=== PATIENT | female | born 2000 | race African-American/Black ===

== ENCOUNTER → 2020-04-23 | Outpatient (CLI) | payer MEDICAID ==
--- NOTE | 2020-04-23 12:36 | RADIOLOGY REPORT (SQ) ---
EXAM DESCRIPTION: U/S ML1HWRS TRNABD 1GES W/ODOP IMAGES COMPLETED DATE/TIME: 04/23/2020 10:32 am REASON FOR STUDY: Z34.01 ENCNTR FOR SUPRVSN OF NORMAL FIRST PREG, FIRST TRIMESTER Z34.01 ENCNTR FOR SUPRVSN OF NORMAL FIRST PREG, FIRST TRIMES COMPARISON: None. TECHNIQUE: Transabdominal static and realtime grayscale images acquired of the pelvis. Additional se lected spectral and color Doppler images recorded. All images stored on PACs. bHCG: Not applicable. CLINICAL DATES: 13 weeks 1 day LIMITATIONS: None. FINDINGS: FETUS: Single Living intrauterine . ULTRASOUND EGA: 12 weeks 3 days ULTRASOUND JOSIE: 11/02/2020 EFW: Not applicable less than 20 weeks. CRL: 6 cm. FHR: 158 beats per minute. SURVEY: Too early to assess. AMNIOTIC FLUID: Adequate amount. PLACENTA: Not yet developed due to early gestation. SUBCHORIONIC BLEED: No SIZE OF BLEED: Not applicable. UTERUS: No masses. No anomalies. CERVICAL LENGTH: 2.6 cm. Closed. RIGHT ADNEXA: Normal ovary with normal vascular flow. 1.7 x 1.2 x 1.6 cm. No adnexal free fluid. No adnexal masses. LEFT ADNEXA: Normal ovary with normal vascular flow. 3.3 x 2.4 x 1.7 cm. No adnexal free fluid. No adnexal masses. FREE FLUID: None. OTHER: No other significant finding. IMPRESSION: LIVING INTRAUTERINE . EGA 12 weeks 3 days Trimester of : First trimester - 0 to 13 weeks. TECHNICAL DOCUMENTATION: JOB ID: [id number] 2010 [employer]- All Rights Reserved rev-03/18 Reading location - IP/workstation name: [email or web address]
== END ==
LOC: RAD 09:29
PROVIDERS: ATTEND Midwife
DX: Z34.01 Encounter for supervision of normal first pregnancy, first trimester (principal)
CPT/HCPCS: 76801

== ENCOUNTER 2020-09-16 11:27 | Outpatient (CLI) | payer OTHER, MEDICAID ==
--- NOTE | 2020-09-16 12:11 | Non Stress Test Report ---
Non Stress Test Datetime Report Generated by CPN: 09/16/2020 12:11 DEMOGRAPHIC Test Number: 1 EGA NST: 34.0 INDICATION Indication for Study (NST) Other: repeat NST NR in office VITAL SIGNS Temperature - NST: 98.8 Pulse - NST: 89 RESP - NST: 15 NBPSYS NST: 104 NBPDIA NST: 57 MONITORING Monitor Explained: Monitor Explained; Test Explained; Patient Verbalized Understanding Time on Monitor: 09/16/2020 11:36 Time off Monitor: 09/16/2020 11:59 NST Duration: 23 NST INTERVENTIONS NST Interventions: PO Hydration; Reposition Patient Physician Notified NST: Elayne Morales, SAMIA BABY A: [id number] BABY A Movement : Present Contraction Frequency : Irritabilty FHR Baseline : 130 Accelerations : 15X15 Decelerations : None Variability : Moderate 6-25bpm NST Review: Meets Criteria for Reactive NST NST Review and Verified By : JOSH Flanagan Results: Reactive NST REPORT Report Trigger: Send Report
== END 2020-09-16 12:04 | disposition home or self-care (01) ==
LOC: LC 11:27
PROVIDERS: ATTEND Obstetrics & Gynecology
DX: Z34.03 Encounter for supervision of normal first pregnancy, third trimester (principal); Z3A.34 34 weeks gestation of pregnancy
CPT/HCPCS: 59025

== ENCOUNTER 2020-10-22 19:29 | Inpatient (IN) | payer OTHER, MEDICAID ==
[2020-10-22] MEDS ORDERED: OXYTOCIN/0.9 % SODIUM CHLORIDE 30 UNIT/500 ML RTUINJ IV PRN (19:54)
[2020-10-22] MEDS ORDERED: DINOPROSTONE 10 MG VAGINAL INSERT.SR PV PRN (19:54)
[2020-10-22] MEDS ORDERED: RINGERS SOLUTION,LACTATED 500 ML IV ONE (19:57)
[2020-10-22] MEDS ORDERED: RINGERS SOLUTION,LACTATED 1,000 ML IV PRN (19:57)
[2020-10-22] MEDS ORDERED: DINOPROSTONE 10 MG VAGINAL INSERT.SR ONE (20:26)
[2020-10-22 20:47] LABS: ABSOLUTE EOSINOPHILS # (AUTO) 0.1 10^3/uL (0.0-0.6); ABSOLUTE LYMPHOCYTES (AUTO) 1.4 10^3/uL (0.5-4.7); ABSOLUTE MONOCYTES (AUTO) 0.5 10^3/uL (0.1-1.4); ABSOLUTE NEUT (AUTO) 3.4 10^3/uL (1.7-8.2); BASOPHILS % (AUTO) 0.2 % (0-2); EOSINOPHILS % (AUTO) 1.1 % (0-6); HEMATOCRIT 31.4 % (36.0-47.0); HEMOGLOBIN 10.8 g/dL (12.0-15.5); LYMPHOCYTES % (AUTO) 26.7 % (13-45); MEAN CORPUSCULAR HEMOGLOBIN 32.4 pg (27.0-33.4); MEAN CORPUSCULAR HGB CONC 34.3 g/dL (32.0-36.0); MEAN CORPUSCULAR VOLUME 94 fl (80-97); MONOCYTES % (AUTO) 8.8 % (3-13); PLATELET COUNT 170 10^3/uL (150-450); RED BLOOD COUNT 3.33 10^6/uL (3.72-5.28); SEGMENTED NEUTROPHILS % (AUTO) 63.2 % (42-78); TOTAL CELLS COUNTED % (AUTO) 100 %; WHITE BLOOD COUNT 5.4 10^3/uL (4.0-10.5)
[2020-10-22 21:02] LABS: APPEARANCE,URINE SLIGHTLY-CLOUDY; BILIRUBIN,URINE NEGATIVE (NEGATIVE); COLOR,URINE YELLOW; GLUCOSE, URINE NEGATIVE (NEGATIVE); KETONES,URINE NEGATIVE (NEGATIVE); LEUKOCYTE ESTERASE,URINE NEGATIVE (NEGATIVE); NITRITE,URINE NEGATIVE (NEGATIVE); PROTEIN,URINE NEGATIVE (NEGATIVE); URINE SPECIFIC GRAVITY 1.013
[2020-10-22 21:17] LABS: URINE AMPHETAMINES SCREEN NEGATIVE; URINE BARBITURATES SCREEN NEGATIVE; URINE BENZODIAZEPINES SCREEN NEGATIVE; URINE COCAINE SCREEN NEGATIVE; URINE MARIJUANA (THC) SCREEN NEGATIVE; URINE METHADONE SCREEN NEGATIVE; URINE PHENCYCLIDINE SCREEN NEGATIVE
[2020-10-23] MEDS ORDERED: OXYTOCIN/0.9 % SODIUM CHLORIDE 30 UNIT/500 ML RTUINJ ONE (10:00)
[2020-10-23] MEDS ORDERED: LIDOCAINE 1% INJ-PF (10 MG/ML) 30 ML SDV ONE (10:00)
[2020-10-23] MEDS ORDERED: OXYTOCIN 10 UNIT/ML VIAL ONE (10:00)
[2020-10-23] MEDS ORDERED: MISOPROSTOL 0.2 MG TABLET ONE (10:00)
--- NOTE | 2020-10-23 10:09 | Admission Physical ---
Datetime Report Generated by CPN: 10/23/2020 10:09 CURRENT ADMISSION Chief Complaint: Scheduled Induction of Labor Indication for Induction: IUGR Admit Impression : Term, Intrauterine ; No Active Labor Admit Plan: Initiate Labor Induction Protocol Admit Plan- Other: GBS neg ALLERGIES Medication Allergies: No Medication Allergies: No Known Allergies (10/22/2020) Latex: No Latex Allergies OBSTETRICAL HISTORY EDC: 10/28/2020 00:00 : 1 Para: 0 Term: 0 : 0 SAB: 0 IAB: 0 Ectopic: 0 Livin Cesareans: 0 VBACs: 0 Multiple Births: 0 Gestational Diabetes: No Rh Sensitization: No Incompetent Cervix: No LUBA: No Infertility: No ART Treatment: No Uterine Anomaly: No IUGR: No Hx Previous C/S: No Macrosomia: No Hx Loss/Stillborn: No PIH: No Hx : No Placenta Previa/Abruption: No Depression/PP Depression: No PTL/PROM: No Post Hemorrhage: No Current Procedures: Ultrasound; NST Obstetrical History Comments: G1- Current IUGR SEE RECORDS Alcohol: No Marijuana : No Cocaine: No Other Illicit Drugs: No Cigarettes: Never Smoker. [id number] MEDICAL HISTORY Diabetes: No Blood Transfusion: No Pulmonary Disease (Asthma, TB): No Breast Disease: No Hypertension: No Installations Inspector Surgery: No Heart Disease: No Hosp/Surgery: No Autoimmune Disorder: No Anesthetic Complications: No Kidney Disease: No Abnormal Pap Smear: No Neuro/Epilepsy: No Psychiatric Disorders: No Other Medical Diseases: Yes Hepatitis/Liver Disease: No Significant Family History: No Varicosities/Phlebitis: No Trauma/Violence : No Thyroid Dysfunction: No Medical History Comments: Anemia with INFECTIOUS HISTORY Gonorrhea: No Genital Herpes: No Chlamydia: No Tuberculosis: No Syphilis: No Hepatitis: No HIV/AIDS Exposure: No Rash or Viral Illness: No HPV: No PHYSICAL EXAM General: Normal HEENT: Deferred Neurologic: Normal Thyroid: Deferred Heart: Normal Lungs: Normal Breast: Deferred Back: Deferred Abdomen: Normal Genitourinary Exam: Normal Extremities: Normal DTRs: Deferred Pelvic Type: Adequate Vital Signs: Reviewed MEMBRANES Membranes: Intact FETUS A EGA: 39.2 Monitoring: External US FHR- Baseline: 120 Variability: Moderate 6-25bpm Accelerations: 15X15 Decelerations: None Presentation: Vertex Admit Comment: had cervidil last night, plan to start pitocin today plan per Dr. Martin EFW 2599g on 10/18/20 at [facility] 6th%tile PLANS FOR LABOR AND DELIVERY Labor and Delivery: None Pain Management: Epidural (Annotations: Data stored by N on behalf of user) Feeding Preference: Breast Benefit of Breast Feed Discussed: Yes Circumcision: N/A INFORMED CONSENT Assignment: Vinod Martin MD Signature: with User ID: Mina : with User ID: Mina
--- NOTE | 2020-10-23 16:44 | L&D Progress Notes ---
PROGRESS NOTES Datetime Report Generated by CPN: 10/23/2020 16:44 PROGRESS NOTE Procedures: Sterile Vag Exam Plan: Continue Present Management Comment: plan per Dr. Martin to stop pit this pm and place cervidil VAGINAL EXAM Dilatation: 1 Effacement: 50 LAST VAGINAL EXAM-NURSING Nursing Exam Dilitation: 1.0 Nursing Exam Effacement: 50 Nursing Exam Station: -2 Nursing Exam Contractions: Unable to determine cx pattern d/t pt movement, TOCO readjusted MEMBRANES Membranes: Intact FETUS A FHR - Baseline: 125 Monitoring: External US Variability: Moderate 6-25bpm Decelerations: None : 39.2 Presentation: Vertex SIGNATURE SIGNATURE: [id number] Assignment: Vinod Martin MD Signature: with User ID: Joelles : with User ID: Mina
[2020-10-23] MEDS ORDERED: DINOPROSTONE 10 MG VAGINAL INSERT.SR PV ONE (18:00)
[2020-10-23] MEDS ORDERED: DINOPROSTONE 10 MG VAGINAL INSERT.SR ONE (20:21)
[2020-10-23] MEDS ORDERED: DINOPROSTONE 10 MG VAGINAL INSERT.SR PV PRN (20:23)
[2020-10-24] MEDS ORDERED: OXYTOCIN/0.9 % SODIUM CHLORIDE 30 UNIT/500 ML RTUINJ ONE (09:17)
--- NOTE | 2020-10-24 10:42 | L&D Progress Notes ---
PROGRESS NOTES Datetime Report Generated by CPN: 10/24/2020 10:41 PROGRESS NOTE Impression: Normal Progression of Labor Procedures: Artificial ROM; Sterile Vag Exam Plan: Continue Present Management; Induction; Cervical Ripening Informed Consent Obtained: Vaginal Delivery; Induction of Labor; Risks, Benefits and Alternatives Discussed Comment: 1/50/-3, pitocin started for IOL and continued cervical ripening. VAGINAL EXAM Dilatation: 1 Effacement: 50 LAST VAGINAL EXAM-NURSING Nursing Exam Dilitation: 1.0 Nursing Exam Effacement: thick Nursing Exam Station: -2 Nursing Exam Contractions: unable to determine pattern d/t pt up to BR . RN at bedside readjusting TOCO MEMBRANES Membranes: Intact FETUS A FHR - Baseline: 120 Monitoring: External US Variability: Moderate 6-25bpm Decelerations: None FHR Category: Category I : 39.2 Presentation: Vertex SIGNATURE SIGNATURE: [id number];[id number];[id number] Assignment: Vinod Martin MD Signature: with User ID: Julien : with User ID: Julien
[2020-10-24] MEDS ORDERED: NALBUPHINE HCL INJ 10 MG/1 ML AMPULE ONE (11:12)
[2020-10-24] MEDS ORDERED: NALBUPHINE HCL INJ 10 MG/1 ML AMPULE INJ ONE (11:12)
[2020-10-24] MEDS ORDERED: EPHEDRINE SULFATE INJ 50 MG/1 ML AMPULE ONE (15:49)
[2020-10-24] MEDS ORDERED: FENTANYL/BUPIVACAINE/NS/PF 300 MCG/150 ML RTUINJ EPI ONE (15:49)
[2020-10-24] MEDS ORDERED: ROPIVACAINE HCL 0.2% INJ/PF (2 MG/ML) 20 ML SDV ONE (15:50)
--- NOTE | 2020-10-24 17:42 | L&D Progress Notes ---
PROGRESS NOTES Datetime Report Generated by CPN: 10/24/2020 17:42 PROGRESS NOTE Impression: Normal Progression of Labor Procedures: Artificial ROM; Sterile Vag Exam Plan: Continue Present Management; Induction Informed Consent Obtained: Vaginal Delivery; Induction of Labor; Risks, Benefits and Alternatives Discussed Vital Signs : Reviewed Comment: Cooks catheter evaluation performed and both bulbs in vagina. Cooks catheter removed. Cvx 6-7/70/-1. AROM clear fluid. Anticipate . VAGINAL EXAM Dilatation: 1 Effacement: 50 LAST VAGINAL EXAM-NURSING Nursing Exam Dilitation: 6.0 Nursing Exam Effacement: thick Nursing Exam Station: -2 Nursing Exam Contractions: unable to determine cx pattern. MEMBRANES Membranes: Ruptured Amniotic Fluid Color: Clear FETUS A FHR - Baseline: 120 Monitoring: External US Variability: Moderate 6-25bpm Accelerations: 15X15 Decelerations: Variable FHR Category: Category I : 39.2 Presentation: Vertex SIGNATURE SIGNATURE: [id number];[id number];[id number] Assignment: Vinod Martin MD Signature: with User ID: Julien : with User ID: Julien
[2020-10-25] MEDS ORDERED: ACETAMINOPHEN 650 MG SUPP.RECT PR PRN (00:17)
[2020-10-25] MEDS ORDERED: DIPH/PERTUSS(ACELL)/TETANUS VAC/PF 0.5 ML SYR (>=10YO) IM PRN (00:17)
[2020-10-25] MEDS ORDERED: ZOLPIDEM TARTRATE 5 MG TABLET PO PRN (00:17)
[2020-10-25] MEDS ORDERED: BENZOCAINE/MENTHOL AEROSOL SPRAY 56 ML TOP PRN (00:17)
[2020-10-25] MEDS ORDERED: DIBUCAINE 1% OINTMENT 28 GM TP PRN (00:17)
[2020-10-25] MEDS ORDERED: GLYCERIN/WITCH HAZEL LEAF 1 EACH MED..WIPE TP PRN (00:17)
[2020-10-25] MEDS ORDERED: FAMOTIDINE 20 MG TABLET PO PRN (00:17)
[2020-10-25] MEDS ORDERED: OXYTOCIN/0.9 % SODIUM CHLORIDE 30 UNIT/500 ML RTUINJ IV PRN (00:17)
[2020-10-25] MEDS ORDERED: MEASLES,MUMPS&RUBELLA VACC/PF 0.5 ML VIAL SUBCUT PRN (00:17)
[2020-10-25] MEDS ORDERED: VARICELLA VACC/PF (1350 UNIT/0.5 ML) 0.5 ML VIAL SUBCUT PRN (00:17)
[2020-10-25] MEDS ORDERED: DIPHENHYDRAMINE HCL 25 MG CAPSULE PO PRN (00:17)
[2020-10-25] MEDS ORDERED: ACETAMINOPHEN 325 MG TABLET PO PRN (00:17)
[2020-10-25] MEDS ORDERED: MAGNESIUM HYDROXIDE SUSP 30 ML UDCUP PO PRN (00:17)
[2020-10-25] MEDS ORDERED: MAG HYDROX/AL HYDROX/SIMETH SUSP 30 ML UDCUP PO PRN (00:17)
[2020-10-25] MEDS ORDERED: PSEUDOEPHEDRINE HCL 30 MG TABLET PO PRN (00:17)
[2020-10-25] MEDS ORDERED: ACETAMINOPHEN WITH CODEINE #3 TABLET PO PRN ×2 (00:17)
[2020-10-25] MEDS: IBUPROFEN 800 MG TABLET PO SCH ×3 (06:04→21:47)
--- NOTE | 2020-10-25 09:54 | PDOC PROGRESS REPORT ---
Subjective-OB Progress Note for:: 10/25/20 Subjective: Doing well, no c/o, , ambulating, voiding, scant lochia Physical Exam (OB) Vital Signs: Temp Pulse Resp BP Pulse Ox 98.2 F 83 17 95/65 L 98 10/25/20 07:56 10/25/20 07:56 10/25/20 07:56 10/25/20 07:56 10/25/20 07:56 Intake & Output 10/24/20 10/25/20 10/26/20 06:59 06:59 06:59 Intake Total 400 Output Total 800 Balance -400 - PIH/Pre-Eclampsia Clonus: Negative Headache: Absent Epigastric Pain: No Visual Changes: No - Maternal Morbidity 59. Maternal Morbidity (serious complications experinced by the mother associated with labor and delivery: None of the above - Lochia Lochia Amount: Small 10-25 ml Lochia Color: Rubra/Red - Abdomen Description: Soft, Round Hernia Present: No Fundal Description: Firm, Midline Fundal Height: u/u - u/2 Objective-Diagnostic Laboratory: 10/22/20 20:35 Assessment and Plan(PN) - Assessment and Plan (1) Encounter for induction of labor Is this a current diagnosis for this admission?: Yes (2) Intrauterine growth restriction affecting antepartum care of mother Qualifiers: Fetus number: single or unspecified fetus Qualified Code(s): O36.5990 - Ma ternal care for other known or suspected poor growth, unspecified trimester, not applicable or unspecified Is this a current diagnosis for this admission?: Yes (3) Vaginal delivery Is this a current diagnosis for this admission?: Yes - Time Spent with Patient Time with patient: Less than 15 minutes Medications reviewed and adjusted accordingly: Yes - Disposition Anticipated Discharge Disposition: Home, Self Care Anticipated Discharge Timeframe: within 24 hours
[2020-10-25] MEDS: SENNOSIDES/DOCUSATE 8.6-50 MG 1 EACH TABLET PO SCH (12:04)
[2020-10-25] MEDS: DOCUSATE SODIUM 100 MG CAPSULE PO SCH ×2 (12:04→18:04)
[2020-10-25] MEDS: FERROUS SULFATE 325 MG TABLET PO SCH ×2 (12:04→18:04)
[2020-10-25] MEDS: PRENATAL VITAMIN W DHA CAPSULE PO SCH (12:04)
[2020-10-26] MEDS: IBUPROFEN 800 MG TABLET PO SCH ×2 (05:05→14:44)
[2020-10-26 08:50] LABS: HEMOGLOBIN 11.3 g/dL (12.0-15.5); MEAN CORPUSCULAR HGB CONC 34.3 g/dL (32.0-36.0); MEAN CORPUSCULAR VOLUME 93 fl (80-97); PLATELET COUNT 136 10^3/uL (150-450); RED BLOOD COUNT 3.54 10^6/uL (3.72-5.28); RED CELL DISTRIBUTION WIDTH 14.2 % (11.5-14.0); WHITE BLOOD COUNT 6.8 10^3/uL (4.0-10.5)
[2020-10-26] MEDS: PRENATAL VITAMIN W DHA CAPSULE PO SCH (10:07)
[2020-10-26] MEDS: FERROUS SULFATE 325 MG TABLET PO SCH (10:07)
[2020-10-26] MEDS: DOCUSATE SODIUM 100 MG CAPSULE PO SCH (10:09)
--- NOTE | 2020-10-26 10:56 | PDOC PROGRESS REPORT ---
Subjective-OB Progress Note for:: 10/26/20 Subjective: Doing well, no c/o, would like to go home today, , lochia scant Physical Exam (OB) Vital Signs: Temp Pulse Resp BP Pulse Ox 97.4 F 75 16 95/51 L 98 10/26/20 07:54 10/26/20 07:14 10/26/20 07:14 10/26/20 07:14 10/26/20 07:14 Intake & Output 10/25/20 10/26/20 10/27/20 06:59 06:59 06:59 Intake Total 400 1220 Output Total 800 Balance -400 1220 - PIH/Pre-Eclampsia DTR's: 1 + Clonus: Negative Headache: Absent Epigastric Pain: No Visual Changes: No - Maternal Morbidity 59. Maternal Morbidity (serious complications experinced by the mother associated with labor and delivery: None of the above - Lochia Lochia Amount: Scant < 10 ml Lochia Color: Rubra/Red - Abdomen Description: Soft, Round Hernia Present: No Fundal Description: Firm, Midline Fundal Height: u/u - u/2 Objective-Diagnostic Laboratory: 10/26/20 07:44 10/26/20 07:44 WBC 6.8 RBC 3.54 L Hgb 11.3 L Hct 33.0 L MCV 93 MCH 32.0 MCHC 34.3 RDW 14.2 H Plt Count 136 L Assessment and Plan(PN) - Assessment and Plan (1) Encounter for induction of labor Is this a current diagnosis for this admission?: Yes (2) Intrauterine growth restriction affecting antepartum care of mother Qualifiers: Fetus number: single or unspecified fetus Qualified Code(s): O36.5990 - Maternal care for other known or suspected poor growth, unspecified trim kaye, not applicable or unspecified Is this a current diagnosis for this admission?: Yes (3) Vaginal delivery Is this a current diagnosis for this admission?: Yes - Time Spent with Patient Time with patient: Less than 15 minutes Medications reviewed and adjusted accordingly: Yes - Disposition Anticipated Discharge Disposition: Home, Self Care Anticipated Discharge Timeframe: within 24 hours
--- NOTE | 2020-10-26 13:21 | PDOC DISCHARGE SUMMARY ---
Impression - Admit/DC Date/PCP Admission Date/Primary Care Provider: 10/22/20 20:50 TERESITA TRAORE MD Discharge Date: 10/26/20 - Discharge Diagnosis (1) Encounter for induction of labor Is this a current diagnosis for this admission?: Yes (2) Intrauterine growth restriction affecting antepartum care of mother Is this a current diagnosis for this admission?: Yes (3) Vaginal delivery Is this a current diagnosis for this admission?: Yes - Additional Information Resuscitation Status: Full Code Discharge Diet: As Tolerated Discharge Activity: Activity As Tolerated, Balance Activity w/Rest, No Lifting/Push/Pulling, Pelvic Rest, No tub bath, Walk Frequently Referrals: TERESITA TRAORE MD [Primary Care Provider] - Prescriptions: Ibuprofen [Motrin 800 mg Tablet] 800 mg PO Q8 30 Days #90 tablet Home Medications: Iron 325 mg PO DAILY 09/16/20 Prenat 115/Iron Fum/Folic/Dss [ 19 Tablet] 1 each PO DAILY 09/16/20 Ibuprofen [Motrin 800 mg Tablet] 800 mg PO Q8 30 Days #90 tablet 10/26/20 HPI Reason(s) for Admission: Induction of Labor, Other Procedures: None Intrapartum Procedure(s): Spontaneous Vaginal Delivery Hospital Course 59. Maternal Morbidity (serious complications experinced by the mother associated with labor and delivery: None of the above Results Laboratory Results: WBC 6.8 10^3/uL (4.0-10.5) 10/26/20 07:44 RBC 3.54 10^6/uL (3.72-5.28) L 10/26/20 07:44 Hgb 11.3 g/dL (12.0-15.5) L 10/26/20 07:44 Hct 33.0 % (36.0-47.0) L 10/26/20 07:44 MCV 93 fl (80-97) 10/26/20 07:44 MCH 32.0 pg (27.0-33.4) 10/26/20 07:44 MCHC 34.3 g/dL (32.0-36.0) 10/26/20 07:44 RDW 14.2 % (11.5-14.0) H 10/26/20 07:44 Plt Count 136 10^3/uL (150-450) L 12/26/20 07:44 Lymph % (Auto) 26.7 % (13-45) 10/22/20 20:35 Clark % (Auto) 8.8 % (3-13) 10/22/20 20:35 Eos % (Auto) 1.1 % (0-6) 10/22/20 20:35 Baso % (Auto) 0.2 % (0-2) 10/22/20 20:35 Absolute Neuts (auto) 3.4 10^3/uL (1.7-8.2) 10/22/20 20:35 Absolute Lymphs (auto) 1.4 10^3/uL (0.5-4.7) 10/22/20 20:35 Absolute Monos (auto) 0.5 10^3/uL (0.1-1.4) 10/22/20 20:35 Absolute Eos (auto) 0.1 10^3/uL (0.0-0.6) 10/22/20 20:35 Absolute Basos (auto) 0.0 10^3/uL (0.0-0.2) 10/22/20 20:35 Seg Neutrophils % 63.2 % (42-78) 10/22/20 20:35 Urine Color YELLOW 10/22/20 19:47 Urine Appearance SLIGHTLY-CLOUDY 10/22/20 19:47 Urine pH 7.0 (5.0-9.0) 10/22/20 19:47 Ur Specific [place] 1.013 10/22/20 19:47 Urine Protein NEGATIVE mg/dL (NEGATIVE) 10/22/20 19:47 Urine Glucose (UA) NEGATIVE mg/dL (NEGATIVE) 10/22/20 19:47 Urine Ketones NEGATIVE mg/dL (NEGATIVE) 10/22/20 19:47 Urine Blood NEGATIVE (NEGATIVE) 10/22/20 19:47 Urine Nitrite NEGATIVE (NEGATIVE) 10/22/20 19:47 Urine Bilirubin NEGATIVE (NEGATIVE) 10/22/20 19:47 Urine Urobilinogen 2.0 mg/dL (<2.0) H 10/22/20 19:47 Ur Leukocyte Esterase NEGATIVE (NEGATIVE) 10/22/20 19:47 Urine Ascorbic Acid 40 (NEGATIVE) H 10/22/20 19:47 Urine Opiates Screen NEGATIVE 10/22/20 19:47 Urine Methadone Screen NEGATIVE 10/22/20 19:47 Ur Barbiturates Screen NEGATIVE 10/22/20 19:47 Ur Phencyclidine Scrn NEGATIVE 10/22/20 19:47 Ur Amphetamines Screen NEGATIVE 10/22/20 19:47 U Benzodiazepines Scrn NEGATIVE 10/22/20 19:47 Urine Cocaine Screen NEGATIVE 10/22/20 19:47 U Marijuana (THC) Screen NEGATIVE 10/22/20 19:47 RPR NONREACTIVE (NONREACTIVE) 10/22/20 20:35 Blood Type B POSITIVE 10/22/20 20:35 Antibody Screen NEGATIVE 10/22/20 20:35
[2020-10-26 13:31] VITALS: BP 95/65
[2020-10-26] MEDS: SENNOSIDES/DOCUSATE 8.6-50 MG 1 EACH TABLET PO SCH (14:44)
--- NOTE | 2020-10-29 11:47 | Delivery Summary ---
Del Sum A-C Datetime Report Generated by CPN: 10/29/2020 11:46 DELIVERY PERSONNEL DELIVERY PERSONNEL: [id number] Delivery Doctor:: Nanci Dunn MD Labor and Delivery Nurse:: Milly Andrew RNconverter supervisor Nurse:: Arely Hyman RN Gin Pole Operator/SUSTAINABILITY COACH: Marcos Paez, AUDIO VISUAL DIRECTOR MATERNAL INFORMATION Delivery Anesthesia: Epidural Medications After Delivery: Pitocin 30 Units in 500ml NS/D5W Estimated Blood Loss (ml): 250 Delivery QBL: 250 Maternal Complications: None Provider Comments: VFI delivered in JACK presentation with nuchal and body cord. Shoulders and body delivered without difficulty. COrd doubly clamped and cut after delay. Placenta delivered intact spontaneously. FF at U. No perineal lacerations. Mother and baby stable upon provider leaving the room. LABOR SUMMARY EDC: 10/28/2020 00:00 No. Babies in Womb: 1 Attempted: No Labor Anesthesia: Epidural LABOR INFORMATION Reason for Induction: Intrauterine Growth Retardation Onset of Labor: 10/24/2020 17:14 Complete Dilatation: 10/24/2020 22:38 Cervical Ripening Agents: Cervidil Cervical Ripening Agents: Cervidil Oxytocin: Induction Group B Beta Strep: negative (Annotations: Data stored by [facility] on behalf of user) Steroids Given: None Reason Steroids Not Administered: Not Applicable MEMBRANES Membranes Rupture Method: Artificial Rupture of Membranes: 10/24/2020 17:14 Length of Rupture (hr): 6.80 Amniotic Fluid Color: Clear Amniotic Fluid Amount: Small Amniotic Fluid Odor: Normal STAGES OF LABOR Stage 1 hr: 5 Stage 1 min: 24 Stage 2 hr: 1 Stage 2 min: 24 Stage 3 hr: 0 Stage 3 min: 3 Total Time in Labor hr: 6 Total Time in Labor min: 51 VAGINAL DELIVERY Episiotomy: None Laceration #1: None Laceration Extension #1: N/A Laceration Repair: Not Applicable Sponge Count Correct: Yes Sharps Count Correct: Yes CSECTION DELIVERY Primary Indication: N/A Secondary Indication: N/A CSection Incidence: N/A Labor: N/A Elective: N/A CSection Incision: N/A BABY A INFORMATION Infant Delivery Date/Time: 10/25/2020 00:02 Method of Delivery: Vaginal Nurse Controlled Delivery: No Born in Route : No : N/A Forceps: N/A Vacuum Extraction: N/A Shoulder Dystocia : No PRESENTATION/POSITION BABY A Presentation: Cephalic Presentation: Cephalic Presentation: Cephalic Presentation: Cephalic Presentation: Cephalic Presentation: Cephalic Cephalic Presentation: Vertex Vertex Position: Left Occipital Anterior Breech Presentation: N/A PLACENTA INFORMATION BABY A Placenta Delivery Time : 10/25/2020 00:05 Placenta Method of Delivery: Spontaneous Placenta Status: Delivered SCORES BABY A Heart Rate 1 min: >100 bpm Resp Effort 1 min: Good Cry Reflex Irritability 1 min: Cough or Sneeze or Pulls Away Muscle Tone 1 min: Some Flexion of Extremities Color 1 min: Body [place], Extremities Blue Resuscitation Effort 1 min: Tactile Stimulation SCORE 1 MIN: 8 Heart Rate 5 min: >100 bpm Resp Effort 5 min: Good Cry Reflex Irritability 5 min: Cough or Sneeze or Pulls Away Muscle Tone 5 min: Active Motion Color 5 min: Body [place], Extremities Blue Resuscitation Effort 5 min: Tactile Stimulation SCORE 5 MIN: 9 INFORMATION BABY A Gestational Age at Delivery: 39.4 Gestational Status: Full Term- 39- 40.6 Weeks Infant Outcome : Liveborn Condition : Stable Infant Sex: Female IDENTIFICATION BABY A Verification Date/Time: 10/25/2020 00:55 ID Band Number: [id number] Mother's Name Verified: Yes Infant RN Verifying Infant: ETao Andrew RN/ R. Raydonte RN WEIGHT/LENGTH BABY A Infant Birthweight (gm): 2850 Weight (lb): 6 Weight (oz): 5 Length (in): 19.50 Infant Length (cm): 49.53 CORD INFORMATION BABY A No. Cord Vessels: 3 Nuchal Cord : Around Neck x1, Loose Cord Blood Taken: Yes-For Storage (Mom's Blood type +) ASSESSMENT BABY A Skin to Skin: Yes BABY B INFORMATION : N/A SIGNATURES Signature: with User ID: [email or web address] : I was personally available for consultation and serving as supervising physician for the MLP. : I was personally available for consultation and serving as supervising physician for the MLP.
== END 2020-10-26 17:00 | disposition home or self-care (01) | DRG 807 ==
LOC: LC 19:29 → LR 20:50 → 2S 10-25 02:01
PROVIDERS: ADMIT Obstetrics & Gynecology; ATTEND Obstetrics & Gynecology
PROC: 3E033VJ Introduction of Other Hormone into Peripheral Vein, Percutaneous Approach (ICD-10-PCS; 2020-10-24)
PROC: 10907ZC Drainage of Amniotic Fluid, Therapeutic from Products of Conception, Via Natural or Artificial Opening (ICD-10-PCS; 2020-10-24)
PROC: 10E0XZZ Delivery of Products of Conception, External Approach (ICD-10-PCS; principal; 2020-10-25)
DX: O36.5930 Maternal care for other known or suspected poor fetal growth, third trimester, not applicable or unspecified (principal); Z37.0 Single live birth; Z20.828 Contact with and (suspected) exposure to other viral communicable diseases; O99.02 Anemia complicating childbirth; D64.9 Anemia, unspecified; O69.81X0 Labor and delivery complicated by cord around neck, without compression, not applicable or unspecified; O69.82X0 Labor and delivery complicated by other cord entanglement, without compression, not applicable or unspecified; Z3A.39 39 weeks gestation of pregnancy
CPT/HCPCS: 36415; 80307; 81005; 85025; 85027; 86592; 86850; 86900; 86901; 88307; J2300; J2590; J2795; J3010; J3490